=== PATIENT | male | born 1955 | race Caucasian/White ===

== ENCOUNTER 2017-02-20 20:04 | Emergency (ER) | payer BC ==
[~2017-02-20] VITALS: Ht 170.2 cm; Wt 90.0 kg
[~2017-02-20 20:04] MED LIST: ASPIRIN81 M2 PO; ATACAND4 MG PO; Aspirin E.C. PO; CYANOCOBALAM1000 MCG PO; LIPITOR5 MG PO; Vibramycin, Doryx PO
[2017-02-20 20:19] LABS: HEMATOCRIT 46.9 % (38.0-50.0); MCH 29.3 PG (29.0-34.0); MCHC 33.3 G/DL (30.0-36.0); MEAN PLAT.VOLUME 9.8 uM^3 (9.0-12.4); PLATELET COUNT 250 K/uL (156-360); RBC DIS.WIDTH-CV 12.6 % (11.8-14.6); RBC DIS.WIDTH-SD 40.5 % (39-53); RED BLOOD COUNT 5.33 M/uL (4.00-5.50); WHITE BLOOD COUNT 10.3 K/uL (4.1-10.2)
[2017-02-20 20:32] LABS: CHLORIDE 103 mEq/L (99-109); POTASSIUM 4.1 mEq/L (3.7-5.4); SODIUM 141 mEq/L (136-147)
[2017-02-20 20:34] LABS: GLUCOSE 101 mg/dL (70-99)
[2017-02-20 20:35] LABS: ANION GAP 10 MEQ/L (2-14)
[2017-02-20 20:38] LABS: GFR ESTIMATE (CALCULATED) > 59 mL/min/
[2017-02-20 20:39] LABS: UREA NITROGEN (BUN) 18 mg/dL (9-23)
[2017-02-20 20:46] LABS: TROP-I INTERPRETATION NEGATIVE; TROPONIN-I < 0.01 ng/mL (0.0-0.30)
[2017-02-20 21:00] LABS: PROTHROMBIN TIME 11.1 SEC (10.2-12.9)
[2017-02-20 21:02] LABS: PTT 25.9 SEC (25-37)
[2017-02-20 21:06] LABS: TOTAL BILIRUBIN 2.3 mg/dL (0.0-1.0)
[2017-02-20 21:07] LABS: ALKALINE PHOSPHATASE 121 IU/L (3-129)
[2017-02-20 21:09] LABS: DIRECT BILIRUBIN 1.4 mg/dL (0.0-0.3)
[2017-02-20 21:10] LABS: LIPASE 46 U/L (1.0-51.0)
[2017-02-20 23:00] LABS: TROP-I INTERPRETATION NEGATIVE; TROPONIN-I < 0.01 ng/mL (0.0-0.30)
[2017-02-21 00:39] VITALS: BP 115/68
== END 2017-02-21 00:39 | disposition home or self-care (01) ==
LOC: EME → EDBD 20:04 → EME 20:04
PROVIDERS: Emergency Medicine
DX: R10.13 Epigastric pain (principal); E78.5 Hyperlipidemia, unspecified; I10 Essential (primary) hypertension; Z79.82 Long term (current) use of aspirin; Z87.891 Personal history of nicotine dependence
CPT/HCPCS: 71020; 80048; 80076; 83605; 83690; 83880; 84484; 85027; 85610; 85730; 93005; 99281; 99285; J2765; S0028